=== PATIENT | female | born 1990 | race Caucasian/White ===

== ENCOUNTER 2017-09-15 06:09 | Emergency (ER) | payer MEDICAID ==
[2017-09-15 06:19] VITALS: BP 117/85
[2017-09-15] MEDS ORDERED: Ondansetron 4 MG Tab.DIS PO ONE (06:34)
--- NOTE | 2017-09-15 06:36 | EDM.PDOC ---
ED HPI GENERAL MEDICAL PROBLEM - General Chief Complaint: Headache Stated Complaint: MIGRAINE Time Seen by Provider: 09/15/17 06:33 Source of Information: Reports: Patient History Limitations: Reports: No Limitations - History of Present Illness INITIAL COMMENTS - FREE TEXT/NARRATIVE: This is a 27-year-old female. She comes because she is having a migraine headache with nausea and vomiting and photophobia. She says she gets migraine headaches quite frequently but normally Excedrin or some other over-the -counter medication seems to help take it away. She does not know why this one is worse than normal. She describes her headache as pounding and throbbing with some pain behind her eyes and her body aches. She has had some nausea and vomiting with this. There's been no diarrhea no fever no chills no cough no congestion no tooth pain no ear pain. She says these are typical migraines when they get bad. Headache Pain Score (Numeric/FACES): 10 - Related Data Allergies Allergy/AdvReac Type Severity Reaction Status Date / Time acetaminophen [From Vicodin] Allergy Itching Verified 09/15/17 06:19 hydrocodone bitartrate Allergy Itching Verified 09/15/17 06:19 [From Vicodin] Home Meds: Home Meds Multivits,Ca,Minerals/Iron/FA [One-A-Day Women's] 1 tab PO DAILY 08/03/15 [ History] Past Medical History Other HEENT History: wears eyeglasses Social & Family History - Family History Family Medical History: Noncontributory - Tobacco Use Smoking Status *Q: Current Every Day Smoker Years of Tobacco use: 10 Packs/Tins Daily: 0.5 Second Hand Smoke Exposure: No - Caffeine Use Caffeine Use: Reports: Coffee - Alcohol Use Days Per Week of Alcohol Use: 1 Number of Drinks Per Day: 1 Total Drinks Per Week: 1 - Recreational Drug Use Recreational Drug Use: No ED ROS GENERAL - Review of Systems Review Of Systems: See Below Constitutional: Denies: Fever, Chills HEENT: Reports: Eye Pain, Other (Photophobia) Respiratory: Reports: No Symptoms Cardiovascular: Reports: No Symptoms Endocrine: Reports: No Symptoms GI/Abdominal: Reports: Nausea, Vomiting. Denies: Abdominal Pain : Reports: No Symptoms Musculoskeletal: Reports: No Symptoms Skin: Reports: No Symptoms Neurological: Reports: Headache Psychiatric: Reports: No Symptoms Hematologic/Lymphatic: Reports: No Symptoms - Physical Exam Exam: See Below Exam Limited By: No Limitations General Appearance: Alert, WD/WN, Mild Distress Eye Exam: Bilateral Eye: Normal Inspection Ears: Normal External Exam, Normal Canal, Normal TMs Nose: Normal Inspection Throat/Mouth: Normal Inspection, Normal Lips, Normal Voice, No Airway Compromise Head Exam: Normocephalic Neck: Supple Respiratory/Chest: No Respiratory Distress, Lungs Clear, Normal Breath Sounds Cardiovascular: Regular Rate, Rhythm, No Murmur GI/Abdominal: Soft, Non-Tender Back Exam: Full Range of Motion Extremities: Normal Inspection, Normal Range of Motion, No Pedal Edema Psychiatric: Tearful Skin Exam: Warm, Dry Course - Vital Signs Last Recorded V/S: Last Vital Signs Temp 97.5 F 09/15/17 06:15 Pulse 78 09/15/17 06:15 Resp 16 09/15/17 06:15 BP 117/85 09/15/17 06:15 Pulse Ox 100 09/15/17 06:15 - Orders/Labs/Meds Orders: Active Orders 24 hr Category Date Time Status Ketorolac [Toradol] Med 09/15/17 06:52 Once 60 mg IM ONETIME ONE Meds: Medications Discontinued Medications Generic Name Dose Route Start Last Admin Trade Name Freq PRN Reason Stop Dose Admin Hydromorphone HCl 1 mg 09/15/17 06:51 Dilaudid IM 09/15/17 06:52 ONETIME ONE Ketorolac Tromethamine 60 mg 09/15/17 06:51 Toradol IM 09/15/17 06:52 ONETIME ONE Ondansetron HCl 4 mg 09/15/17 06:34 09/15/17 06:38 Zofran Odt PO 09/15/17 06:35 4 mg ONETIME ONE Administration - Re-Assessments/Exams Free Text/Narrative Re-Assessment/Exam: 09/15/17 06:52 Patient came without arrived and I explained to her is the policy that we need someone here to take her home once we provide pain medication since she cannot be let out on her own under the influence. Her mother is just arrived and we will provide the pain medications for her she can go home. Departure - Departure Time of Disposition: 06:53 Disposition: Home, Self-Care 01 Condition: Good Clinical Impression: Migraine headache Qualifiers: Migraine type: unspecified Status migrainosus presence: without status migrainosus Intractability: not intractable Qualified Code(s): G43.909 - Migraine, unspecified, not intractable, without status migrainosus Nausea & vomiting Qualifiers: Vomiting type: unspecified Vomiting Intractability: non-intractable Qualified Code(s): R11.2 - Nausea with vomiting, unspecified - Discharge Information Referrals: Colleen Guerra MD [Primary Care Provider] - Forms: ED Department Discharge Additional Instructions: Once you get home go to sleep right away so the medicine can work and stop your migraine headache, once you wake up if there is any slight lingering of your headache take your normal medications to make sure it goes away completely, follow up with your family doctor this week if needed, return to the ER if needed - My Orders Last 24 Hours: My Active Orders 09/15/17 06:52 Ketorolac [Toradol] 60 mg IM ONETIME ONE - Assessment/Plan Last 24 Hours: My Active Orders 09/15/17 06:52 Ketorolac [Toradol] 60 mg IM ONETIME ONE
[2017-09-15] MEDS ORDERED: Ketorolac 60 MG/2 ML SDV IM ONE ×2 (06:51→06:52)
[2017-09-15] MEDS ORDERED: HYDROmorphone 1 MG/ML Syringe IM ONE (06:51)
== END 2017-09-15 07:25 | disposition home or self-care (01) ==
LOC: JD.ED 06:09
DX: G43.909 Migraine, unspecified, not intractable, without status migrainosus (principal); F17.210 Nicotine dependence, cigarettes, uncomplicated; Z88.6 Allergy status to analgesic agent; Z88.5 Allergy status to narcotic agent
CPT/HCPCS: 96372; 99284; A9270; J1170; J1885; 99283